=== PATIENT | female | born 1970 | race Caucasian/White ===

== ENCOUNTER → 2018-09-20 | Outpatient (CLI) | payer BC ==
[2018-09-20 12:00] LABS: Basophils % (A) 0 %; Eosinophils # (A) 0.1 k/uL (0-0.7); Eosinophils % (A) 1 %; HGB 15.7 gm/dL (11.4-16.0); Lymphocytes # (A) 1.8 k/uL (1.0-4.8); Lymphocytes % (A) 21 %; MCH 30.6 pg (25.0-35.0); MCV 95.8 fL (80.0-100.0); Mean Platelet Volume 6.4; Monocytes # (A) 0.4 k/uL (0-1.0); Monocytes % (A) 4 %; Neutrophils # (A) 6.2 k/uL (1.3-7.7); Neutrophils % (A) 72 %; Platelet Count 256 k/uL (150-450); RBC 5.12 m/uL (3.80-5.40); WBC 8.5 k/uL (3.8-10.6)
[2018-09-20 12:56] LABS: Erythrocyte Sedimentation Rate 2 mm/hr (0-20)
[2018-09-20 19:23] LABS: Vitamin D 25 Hydroxy 18.6 ng/mL (30.0-100.0)
[2018-09-20 19:24] LABS: Rheumatoid Factor 5 IU/mL (0-15)
[2018-09-20 19:32] LABS: ALT 10 U/L (8-44); AST 13 U/L (13-35); Alkaline Phosphatase 56 U/L (41-126); C Reactive Protein <0.4 mg/dL (0.0-0.8); Calcium 9.6 mg/dL (8.7-10.3); Carbon Dioxide 25.8 mmol/L (21.6-31.8); Chloride 109 mmol/L (96-109); Creatine Kinase 32 U/L (26-186); Glucose 83 mg/dL (70-110); Potassium 4.4 mmol/L (3.5-5.5); Sodium 140 mmol/L (135-145); Total Bilirubin 0.3 mg/dL (0.3-1.2); Total Protein 6.4 g/dL (6.2-8.2)
== END | disposition home or self-care (01) ==
LOC: LABWHC1 11:12
PROVIDERS: ATTEND Psychiatry & Neurology Pain Medicine
DX: M13.0 Polyarthritis, unspecified (principal)
CPT/HCPCS: 36415; 80053; 82085; 82306; 82550; 82607; 84439; 84443; 85025; 85652; 86038; 86140; 86431